=== PATIENT | female | born 1940 | race Caucasian/White ===

== ENCOUNTER 2022-10-30 15:34 | Emergency (ER) | payer MEDICARE, OTHER ==
[~2022-10-30] VITALS: Ht 172.7 cm; Wt 77.1 kg
[2022-10-30 15:36] VITALS: BP 166/60
--- NOTE | 2022-10-30 15:45 | NUR ---
ERMD AT BEDSIDE
--- NOTE | 2022-10-30 16:00 | NUR ---
81 Y/O FEMALE BIBA FROM [facility], PER EMS CLINIC EKG STATED STEMI, EKG BY FIRE SHOWED NSR, EKG AT BEDSIDE SHOWS BLOCK, PT DENIES ANY SOB, CHEST PAIN, ABD PAIN, RESPIRATIONS EVEN AND UNLABORED NKA PMH: HTN, DM, HDL
[2022-10-30] MEDS ORDERED: NACL 0.9% 1,000 ML IV ONE (16:25)
[2022-10-30 16:43] LABS: BASOPHILS # (AUTO) 0.1 K/uL (0.00-0.22); BASOPHILS % (AUTO) 0.5 % (0.0-2.0); EOSINOPHILS # (AUTO) 0.3 K/uL (0-0.4); HEMOGLOBIN 10.6 g/dL (12.0-16.0); LYMPHOCYTES # (AUTO) 1.5 K/uL (2.5-16.5); MEAN CORPUSCULAR HEMOGLOBIN 29 pg (27-31); MEAN CORPUSCULAR HGB CONC 33 g/dL (33-37); MEAN CORPUSCULAR VOLUME 87.6 fL (80-94); MONOCYTES # (AUTO) 0.9 K/uL (0.8-1.0); NEUTROPHILS # (AUTO) 7.5 K/uL (1.8-7.7); NEUTROPHILS % (AUTO) 72.5 % (42.2-75.2); PLATELET COUNT (AUTO) 273 K/uL (140-450); RED BLOOD CELL COUNT(AUTO) 3.65 MIL/uL (4.20-5.40); RED CELL DISTRIBUTION WIDTH 15.6 % (11.6-13.7); WHITE BLOOD COUNT (AUTO) 10.3 K/uL (4.8-10.8)
[2022-10-30 16:58] LABS: ANION GAP 15.3 (8-16); CARBON DIOXIDE 25.4 mmol/L (21-32); CHLORIDE 100 mmol/L (98-107); CREATININE 0.9 mg/dL (0.6-1.3); GLUCOSE 323 mg/dL (74-106); POTASSIUM 5.7 mmol/L (3.5-5.1); SODIUM SERUM 135 mmol/L (136-145); UREA NITROGEN, BLOOD 22 mg/dL (7-18)
[2022-10-30] MEDS ORDERED: INSULIN REGULAR, HUMAN 100 UNIT/ML VIAL IVP ONE (17:10)
[2022-10-30] MEDS ORDERED: GABA-640 PO (17:40)
[2022-10-30] MEDS ORDERED: ROPI0.2523 PO (17:40)
[2022-10-30] MEDS ORDERED: HYDR-1100 PO (17:40)
[2022-10-30] MEDS ORDERED: ATOR10TA51 PO (17:40)
[2022-10-30] MEDS ORDERED: [UNRECOGNIZED DRUG - CODE] PO (17:40)
[2022-10-30] MEDS ORDERED: INSU-1329 SUBQ (17:40)
[2022-10-30] MEDS ORDERED: AMLO10TA88 PO (17:40)
[2022-10-30] MEDS ORDERED: PANT40EC PO (17:40)
[2022-10-30] MEDS ORDERED: HUM SUBQ (17:40)
[2022-10-30] MEDS ORDERED: FURO20TA8 PO (17:40)
[2022-10-30] MEDS ORDERED: ACETAMINOPHEN EXTRA STRENGTH 500 MG TAB PO ONE (18:10)
[2022-10-30] MEDS ORDERED: CYCLOBENZAPRINE 10 MG TAB PO ONE (18:10)
--- NOTE | 2022-10-30 18:10 | NUR ---
NOTED PT CRAMPING ON THE LEFT FOOT, ERMD MADE AWARE
--- NOTE | 2022-10-30 18:15 | NUR ---
ERMD AT BEDSIDE
[2022-10-30 18:33] LABS: ANION GAP 15.1 (8-16); CARBON DIOXIDE 24.5 mmol/L (21-32); CHLORIDE 105 mmol/L (98-107); CREATININE 0.9 mg/dL (0.6-1.3); GLUCOSE 216 mg/dL (74-106); POTASSIUM 4.6 mmol/L (3.5-5.1); SODIUM SERUM 140 mmol/L (136-145); UREA NITROGEN, BLOOD 21 mg/dL (7-18)
--- NOTE | 2022-10-30 19:29 | NUR ---
Pt report given to RENE BOUCHER. Transfer of care at this time.
--- NOTE | 2022-10-30 19:30 | NUR ---
TRANSFER OF CARE FROM [facility], REPORT RECEIVED FROM RICHA
--- NOTE | 2022-10-30 22:00 | NUR ---
PATIENT IS PENDING TRANSFER TO [facility], AWAITING BED ASSIGNMENT
--- NOTE | 2022-10-30 22:34 | NUR ---
ATTEMPTED TO CONTACT PATIENT'S DTR; [phone]. NO ANSWER
--- NOTE | 2022-10-30 23:45 | NUR ---
SPOKE WITH [facility] TO GIVE REPORT.
[2022-10-31] VITALS: BP 165/52
--- NOTE | 2022-10-31 | NUR ---
Patient to be transferred to [facility] . Is being transferred due to INSURANCE. Receiving facility has accepting physician and available space. ER physician has signed transfer form. Patient or responsible alliance party has agreed to transfer and signed form. Patient belongings inventoried and will be sent with patient. Copy of nursing notes, lab reports, EKG, Physicians Orders and X-rays to be sent with patient. Report called to receiving facility. Ambulance service has been called for transfer. ETA is 0000.
== END 2022-10-31 ==
LOC: MED 15:34
DX: E11.65 Type 2 diabetes mellitus with hyperglycemia (principal); Z20.822 Contact with and (suspected) exposure to COVID-19; E87.5 Hyperkalemia; E11.9 Type 2 diabetes mellitus without complications; I10 Essential (primary) hypertension; E78.5 Hyperlipidemia, unspecified; Z79.4 Long term (current) use of insulin; Z79.899 Other long term (current) drug therapy; Z98.890 Other specified postprocedural states
CPT/HCPCS: 36415; 71045; 80048; 84484; 85025; 87426; 93005; 96361; 96374; 99285; J1815; Q0092; J7030